=== PATIENT | female | born 1980 | race African-American/Black ===

== ENCOUNTER → 2016-09-10 | Outpatient (CLI) | payer OTHER ==
[~2016-09-10] MED LIST: ALLER-TEC10 M1 PO; AMITRIPTYLINE H50 MG PO; AMOXICILLIN875 MG PO; ANTIVERT PO; BACLOFEN10 MG PO; CIPRO PO; CLARITIN10 MG PO; FLONASE ALLERG9.9 ML; INDOCIN SR75 MG PO; INDOMETHACIN50 MG PO; KETOPROFEN PO; LISINOPRIL-HCTZ1 T21 PO; LORTAB 7.51 TAB 7.5/ PO; LYRICA PO; MEDROL DOSEPAK4 MG DOB; METROGEL-VAGINA70 GM VG; MOBIC PO; NASONEX17 GM; NEURONTIN300 MG PO; PHENERGAN25 M1 PO; PREDNISONE10 MG PO; SEROQUEL50 M1 PO; TECFIDERA240 MG PO; VENLAFAXINE H37.5 M1 PO; VIBRAMYCIN100 M1 DOB; VITAMIN D50000 UNIT PO; ZITHROMAX1 G/PKT PO; ZOFRAN ODT4 MG PO
--- NOTE | ~2016-09-10 | MR175 ---
[facility] A Service of [facility] RADIOLOGY TEXT RESULTS PATIENT: GEOVANNA MOTLEY LOCATION: [facility] : 76 UNIT #: [id number] AGE: [address]: MARGARETH CARVER APRN SEX: F ORDER DR: [id number] [facility] [address] [place], [place] [address] [id number] O MR#: [id number] Acc #: [id number] NAME: GEOVANNA MOTLEY : 1980 SEX: F STUDY DATE/TIME: 09/10/2016 14:37 UNIT: [facility] ROOM: STUDY DESCRIPTION: MR Thoracic WWo Contrast Attending Physician: Margareth Carver Aprn Ordering Physician: Margareth Carver Aprn Primary Care Physician: Ubaldo Fernandez M.D. MRI CENTER REPORT This report is preliminary unless electronic signature is present. EXAM Thoracic MRI with and without HISTORY Follow up multiple sclerosis diagnosed in 2012. No new symptoms. COMMENT MRI of the thoracic spine was performed prior to and following intravenous administration 20 mL MultiHance. COMPARISON 03/21/2016 FINDINGS Mild dextroconvex scoliosis. This was unchanged from previous. Sagittal alignment is normal. Bone marrow signal intensity is essentially normal. Intervertebral discs are well-hydrated for age group. Thoracic cord is normal in size and signal intensity. A tiny rightward protrusion at T3-4. No foraminal impingement is suspected. No thoracic canal stenosis. Nothing to suggest demyelinating disease in the thoracic cord. There is no pathologic cord enhancement. IMPRESSION Nothing to suggest demyelinating disease in the thoracic spine. Thoracic cord is normal in size and signal intensity and there is no pathologic cord enhancement. No thoracic canal stenosis. No change in the mild scoliosis. Add: see separate lumbar spine dictation. There is a small focus of likely chronic demyelinating plque at T11-12 better seen on that exam. Dictated by... Una Guerrero M.D. [facility] A Service of [facility] RADIOLOGY TEXT RESULTS PATIENT: GEOVANNA MOTLEY LOCATION: [facility] : 78 UNIT #: [id number] AGE: [address]: MARGARETH CARVER APRN SEX: F ORDER DR: THIS IS AN ELECTRONICALLY VERIFIED REPORT nUa Guerrero M.D. at 09/11/2016 10:53 PM SAC/to TD: 09/11/2016 19:42 JOB #: [id number] MRI CENTER REPORT Page 1 of 1 COPY
--- NOTE | ~2016-09-10 | MR31 ---
[facility] A Service of [facility] RADIOLOGY TEXT RESULTS PATIENT: GEOVANNA MOTLEY LOCATION: [facility] : 78 UNIT #: [id number] AGE: [address]: MARGARETH CARVER APRN SEX: F ORDER DR: [id number] [facility] [address] [place], [place] [address] [id number] O MR#: [id number] Acc #: [id number] NAME: GEOVANNA MOTLEY : 1980 SEX: F STUDY DATE/TIME: 09/10/2016 14:19 UNIT: [facility] ROOM: STUDY DESCRIPTION: MR Cervical WWo Contrast Attending Physician: Margareth Carver Aprn Ordering Physician: Margareth Carver Aprn Primary Care Physician: Ubaldo Fernandez M.D. MRI CENTER REPORT This report is preliminary unless electronic signature is present. EXAM Cervical spine MRI without and with HISTORY Multiple sclerosis for followup. No new symptoms diagnosed in 2013 COMMENT MRI of the cervical spine performed prior to and following intravenous administration of 20 mL of MultiHance. Comparison study is from 03/21/2016. There is mild reversal of the cervical lordosis. This could be positional. Bone marrow signal intensity is normal. There is no Chiari-I malformation. There is again mild cord volume loss centered at the level of C4-C5 posteriorly in an area of cord signal abnormality. This is most consistent with an area of chronic demyelinating plaque. Area of interest measures about 1.2 cm in length, 0.4 cm in AP dimension, and 0.4 cm ML dimension. It is not appreciably changed on comparison to prior study. Following contrast administration, there is no pathologic enhancement. There is nothing to suggest active demyelination. Also again seen is a tiny focus of signal abnormality in the posterior midline cord at the level of CT 3, unchanged and probably a smaller area of chronic demyelination. There is no new lesion appreciated. There is no focal disc protrusion or extrusion. There is a minor disc bulge at C6-C7 with minor endplate spondylosis. There is no cervical canal stenosis. No foraminal impingement. IMPRESSION There is redemonstration of chronic demyelinating plaque in the cervical STS. [facility] A Service of [facility] & [facility] RADIOLOGY TEXT RESULTS PATIENT: GEOVANNA MOTLEY LOCATION: [facility] : 78 UNIT #: [id number] AGE: [address]: MARGARETH CARVER APRN SEX: F ORDER DR: kyra. No new lesion is seen. No active demyelination is suspected. Nothing to suggest cervical canal or foraminal impingement. Continued follow up suggested. Dictated by... Una Guerrero M.D. THIS IS AN ELECTRONICALLY VERIFIED REPORT Una Guerrero M.D. at 09/11/2016 10:51 PM LALA/samantha TD: 09/11/2016 19:20 JOB #: [id number] MRI CENTER REPORT Page 1 of 1 COPY
--- NOTE | ~2016-09-10 | MR112 ---
[facility] A Service of [facility] RADIOLOGY TEXT RESULTS PATIENT: GEOVANNA MOTLEY LOCATION: [facility] : 78 UNIT #: [id number] AGE: [address]: MARGARETH CARVER APRN SEX: F ORDER DR: [id number] [facility] [address] [place], [place] [address] [id number] O MR#: [id number] Acc #: [id number] NAME: GEOVANNA MOTLEY : 1980 SEX: F STUDY DATE/TIME: 09/10/2016 14:59 UNIT: [facility] ROOM: STUDY DESCRIPTION: MR Lumbar WWo Contrast Attending Physician: Margareth Carver Aprn Ordering Physician: Margareth Carver Aprn Primary Care Physician: Ubaldo Fernandez M.D. MRI CENTER REPORT This report is preliminary unless electronic signature is present. EXAM MR lumbar spine with and without HISTORY Multiple sclerosis follow up, diagnosed in 2012 and no new complaints. COMMENT MRI of the lumbar spine performed prior to and following intravenous administration of 20 mL of MultiHance. COMPARISON There is plain film comparison of the lumbar spine from 2017, but I do not have a MRI comparison. FINDINGS There is mild levoconvex lower lumbar scoliosis. Sagittal alignment is normal. Bone marrow signal intensity is normal. Conus medullaris terminates at L1. There is a possible small focus of signal abnormality within the lower thoracic cord at the level of T11-T12 better seen on the lumbar spine study than the thoracic spine study. It is about 8 mm in length, 5 mm in AP dimension and 5 mm in ML dimension. It is not associated with enhancement, mass effect of volume loss. I suspect it is a small chronic demyelinating plaque. It might have been present on the study from 03/21/2016, in retrospect. Mild disc desiccation and loss of disc height at the L4-L5 level. T12-L1, no significant abnormality. L1-L2, no significant abnormality. [facility] A Service of [facility] RADIOLOGY TEXT RESULTS PATIENT: GEOVANNA MOTLEY LOCATION: [facility] : 78 UNIT #: [id number] AGE: [address]: MARGARETH CARVER APRN SEX: F ORDER DR: L2-L3, no significant abnormality. At L3-L4, mild facet hypertrophy on the right. No canal or foraminal impingement. L4-L5, mild bilateral facet hypertrophy. There is a central disc protrusion/extrusion extending cephalad from the disc level, but remaining contiguous with it. It results in some mass effect on the left anterior thecal sac and mild mass effect on the left lateral recess. The disc material is about 1.2 SI dimension, 0.6 cm AP dimension and 1 cm ML dimension. There is no foraminal compromise. At L5-S1, there is mild facet degenerative change on the left. There is no canal stenosis or significant foraminal impingement. Following contrast administration, there is no pathologic nerve root enhancement. Some arthritis likely at the sacroiliac joints. This is partly seen. IMPRESSION 1. There is probably a small chronic demyelinating plaque at the anterior aspect of the cord at the level of T11-12. It is better seen on this lumbar spine study than the earlier thoracic spine study. It is probably chronic in retrospect on a view of a thoracic MRI from 2016. 2. No new abnormality or area of active demyelination is appreciated. 3. There are lumbar degenerative changes most significant appearing radiographically at the L4-L5 level where there is a leftward small extrusion, but it does not result in significant canal stenosis. There is only mild mass effect on the left lateral recess. STAT * RESULT Dictated by... Una Guerrero M.D. THIS IS AN ELECTRONICALLY VERIFIED REPORT Una Guerrero M.D. at 09/11/2016 10:49 PM SAC/to TD: 09/11/2016 17:43 JOB #: [id number] MRI CENTER REPORT Page 1 of 1 COPY
--- NOTE | ~2016-09-10 | MR17 ---
[facility] A Service of [facility] RADIOLOGY TEXT RESULTS PATIENT: GEOVANNA MOTLEY LOCATION: [facility] : 78 UNIT #: [id number] AGE: [address]: MARGARETH CARVER APRN SEX: F ORDER DR: [id number] [facility] [address] [place], [place] [address] [id number] O MR#: [id number] Acc #: [id number] NAME: GEOVANNA MOTLEY : 1980 SEX: F STUDY DATE/TIME: 09/10/2016 14:02 UNIT: [facility] ROOM: STUDY DESCRIPTION: MR Brain WWo Contrast Attending Physician: Margareth Carver Aprn Ordering Physician: Margareth Carver Aprn Primary Care Physician: Ubaldo Fernandez M.D. MRI CENTER REPORT This report is preliminary unless electronic signature is present. EXAM MRI of the brain with and without 09/10/2016 HISTORY Multiple sclerosis for followup. No new symptoms. Diagnosed in 2012. No cancer history. No trauma history. COMMENTS MRI of the brain was performed prior to and following intravenous administration of 20 mL of MultiHance. COMPARISON STUDIES 03/21/2016 FINDINGS Redemonstrated are multiple foci of signal abnormality in the deep periventricular white matter predominantly with appearance typical of the patient's clinical diagnosis of multiple sclerosis. Supratentorial involvement predominates. On comparison to previous, no new lesions are seen. There is mild atrophy for age group. Following contrast administration, there is no pathologic intracranial enhancement. There is some T2 shine through but no truly restricted diffusion. There is no mass effect. There is no imaging evidence for active demyelination. There are areas of T1 precontrast low signal intensity consistent with black holes. The largest of these left posterior periventricular white matter about 7 mm dimension and not appreciably changed. There is no MRI evidence for intracranial hemorrhage. There is no intracranial mass lesion. There is an old right medial orbital wall fracture. Minor fluid or inflammatory change right and left side mastoid air cells. Paranasal sinuses are clear. No sinus air-fluid level. The major intracranial flow voids are maintained. [facility] A Service of [facility] & [facility] RADIOLOGY TEXT RESULTS PATIENT: GEOVANNA MOTLEY [facility] UNIT #: [id number] AGE: [address]: MARGARETH CARVER APRN SEX: F ORDER DR: IMPRESSION Redemonstration of findings consistent with provided clinical diagnosis of multiple sclerosis. No new lesions. No imaging evidence for active demyelination. Dictated by... Una Guerrero M.D. THIS IS AN ELECTRONICALLY VERIFIED REPORT Una Guerrero M.D. at 09/11/2016 10:51 PM Justin TD: 09/11/2016 18:27 JOB #: [id number] MRI CENTER REPORT Page 1 of 1 COPY
== END | disposition home or self-care (01) ==
LOC: CMRI 13:05
DX: G35 Multiple sclerosis (principal); M51.36 Other intervertebral disc degeneration, lumbar region; G95.89 Other specified diseases of spinal cord
CPT/HCPCS: 70553; 72156; 72157; 72158; A9577

== ENCOUNTER 2016-10-07 11:10 | Emergency (ER) | payer OTHER ==
--- NOTE | ~2016-10-07 | CR150 ---
[facility] A Service of [facility] RADIOLOGY TEXT RESULTS PATIENT: GEOVANNA MOTLEY LOCATION: [facility] : 78 UNIT #: [id number] AGE: [address]: TRUNG ADLER SEX: F ORDER DR: [id number] [facility] [address] [place], [place] [address] [id number] P MR#: [id number] Acc #: [id number] NAME: GEOVANNA MOTLEY : 1980 SEX: F STUDY DATE/TIME: 10/07/2016 UNIT: [facility] ROOM: STUDY DESCRIPTION: CR Hip Min 2 Views Lt Attending Physician: Trung Adler Aprn Ordering Physician: Trung Adler Aprn Primary Care Physician: Ubaldo Fernandez M.D. MEDICAL IMAGING REPORT This report is preliminary unless electronic signature is present EXAM Left hip 10/07/2016 12:27 hours HISTORY 36-year-old woman who has fallen twice in the last 10 days with complaint of left hip pain and medial right knee pain. History of multiple sclerosis. COMPARISON Lumbar spine series 07/23/2016. FINDINGS AP pelvis and frog lateral view left hip demonstrate no acute fracture. There is subarticular lucency with surrounding sclerosis at the femoral heads bilaterally concerning for avascular necrosis. The acetabular sides of the joint are normal. Consider pelvis/hip MRI to exclude avascular necrosis. IMPRESSION 1. No pelvic or hip fracture seen. 2 At both femoral heads there is subarticular lucency with surrounding sclerosis raising concern for avascular necrosis. Correlate clinically. Follow up pelvis/hip MRI is recommended to assess both hips for avascular necrosis. Dictated by... Nubia Ontiveros M.D. THIS IS AN ELECTRONICALLY VERIFIED REPORT Nubia Ontiveros M.D. at 10/07/2016 2:29 PM SMM/marina TD: 10/07/2016 13:11 [facility] A Service of [facility] RADIOLOGY TEXT RESULTS PATIENT: GEOVANNA MOTLEY LOCATION: [facility] : 78 UNIT #: [id number] AGE: [address]: TRUNG ADLER SEX: F ORDER DR: JOB #: [id number] MEDICAL IMAGING REPORT Page 1 of 1 COPY
--- NOTE | ~2016-10-07 | CR173 ---
[facility] A Service of [facility] RADIOLOGY TEXT RESULTS PATIENT: GEOVANNA MOTLEY LOCATION: [place] : 78 UNIT #: [id number] AGE: [address]: TRUNG ADLER SEX: F ORDER DR: [id number] [facility] [address] [place], [place] [address] [id number] E MR#: [id number] Acc #: [id number] NAME: GEOVANNA MOTLEY : 1980 SEX: F STUDY DATE/TIME: 10/07/2016 12:28 UNIT: [facility] ROOM: STUDY DESCRIPTION: CR Knee 3 Views Rt Attending Physician: Trung Adler Aprn Ordering Physician: Trung Adler Aprn Primary Care Physician: Ubaldo Fernandez M.D. MEDICAL IMAGING REPORT This report is preliminary unless electronic signature is present EXAM Right knee, 10/07/2016, 1228 hours. CLINICAL HISTORY Patient has fallen twice in the last 10 days. Right medial knee pain since falls. History of multiple sclerosis. COMPARISON None FINDINGS AP, lateral view, and sunrise view are performed. There is no joint effusion or a fracture. There is a mottled appearance to the marrow in the proximal tibial metaphysis measuring up to 5.6 x 2.6 cm which is nonspecific. I would favor this represents an area of previous bone infarct. Correlate with any historical images if these exist. IMPRESSION 1. No joint effusion, fracture, joint space loss, or spurring. There is no loose body. 2. There is a mottled area of relative increased density with mixed lucencies poorly defined in the proximal tibial metaphysis, best seen on the lateral view but present on the AP view. This measures 5.6 x 2.6 cm and is nonspecific. Given the location in this appearance, I would favor a possible bone infarct in the tibia. No prior imaging is available. Correlate with clinical symptoms and duration. Dictated by... Nubia Ontiveros M.D. THIS IS AN ELECTRONICALLY VERIFIED REPORT [facility] A Service of [facility] RADIOLOGY TEXT RESULTS PATIENT: GEOVANNA MOTLEY LOCATION: [facility] : 78 UNIT #: [id number] AGE: [address]: TRUNG ADLER SEX: F ORDER DR: Nubia Ontiveros M.D. at 10/07/2016 2:30 PM TREASURE/elaine TD: 10/07/2016 14:22 JOB #: [id number] MEDICAL IMAGING REPORT Page 1 of 1 COPY
== END 2016-10-07 15:36 | disposition home or self-care (01) ==
LOC: CFTX 11:10 → CED 11:10 → CFTX 13:13
DX: S86.912A Strain of unspecified muscle(s) and tendon(s) at lower leg level, left leg, initial encounter (principal); W01.0XXA Fall on same level from slipping, tripping and stumbling without subsequent striking against object, initial encounter; Y92.009 Unspecified place in unspecified non-institutional (private) residence as the place of occurrence of the external cause
CPT/HCPCS: 73502; 73562; 96372; 99284; J1885

== ENCOUNTER 2016-12-28 14:13 | Emergency (ER) | payer OTHER ==
--- NOTE | ~2016-12-28 | CR127 ---
[facility] A Service of [facility] & [facility] RADIOLOGY TEXT RESULTS PATIENT: GEOVANNA MOTLEY LOCATION: [facility] : 78 UNIT #: [id number] AGE: [address]: Margareth Davis APRN SEX: F ORDER DR: [id number] [facility] [address] [place], [place] [address] [id number] E MR#: [id number] Acc #: [id number] NAME: GEOVANNA MOTLEY : 1980 SEX: F STUDY DATE/TIME: 12/28/2016 15:12 UNIT: [facility] ROOM: STUDY DESCRIPTION: CR Foot Complete Min 3 View Rt Attending Physician: Margareth Davis A.P.R.N. Ordering Physician: [facility] Primary Care Physician: Ubaldo Fernandez M.D. MEDICAL IMAGING REPORT This report is preliminary unless electronic signature is present EXAM Right foot INDICATIONS Trauma. Tripped and has foot pain. FINDINGS 3 views of the right foot without comparison. FINDINGS There is no acute fracture or dislocation. No foreign body. IMPRESSION Negative right foot. Dictated by... Shawn Dueñas M.D. THIS IS AN ELECTRONICALLY VERIFIED REPORT Shawn Dueñas M.D. at 12/29/2016 5:16 PM RPC/pcl TD: 12/29/2016 16:55 JOB #: [id number] MEDICAL IMAGING REPORT Page 1 of 1 COPY
--- NOTE | ~2016-12-28 | CR21 ---
[facility] A Service of [facility] RADIOLOGY TEXT RESULTS PATIENT: GEOVANNA MOTLEY LOCATION: [facility] : 76 UNIT #: [id number] AGE: [address]: Margareth Davis APRN SEX: F ORDER DR: [id number] [facility] [address] [place], [place] [address] [id number] E MR#: [id number] Acc #: [id number] NAME: GEOVANNA MOTLEY : 1980 SEX: F STUDY DATE/TIME: 12/28/2016 15:11 UNIT: [facility] ROOM: STUDY DESCRIPTION: CR Ankle Min 3 Views Rt Attending Physician: Margareth Davis A.P.R.N. Ordering Physician: Ed Bert Diaz M.D. Primary Care Physician: Ubaldo Fernandez M.D. MEDICAL IMAGING REPORT This report is preliminary unless electronic signature is present EXAM Right ankle. INDICATION Right ankle pain. Trauma. FINDINGS Three views of the right ankle without comparison. There is no acute fracture or dislocation. Alignment is anatomic. No foreign body. IMPRESSION Negative right ankle. Dictated by... Shawn Dueñas M.D. THIS IS AN ELECTRONICALLY VERIFIED REPORT Shawn Dueñas M.D. at 12/29/2016 5:16 PM ROSIE/elaine TD: 12/29/2016 16:57 JOB #: [id number] MEDICAL IMAGING REPORT Page 1 of 1 COPY
== END 2016-12-28 16:09 | disposition home or self-care (01) ==
LOC: CFTX 14:13 → CED 14:13 → CFTX 15:55
DX: S93.621A Sprain of tarsometatarsal ligament of right foot, initial encounter (principal); S93.402A Sprain of unspecified ligament of left ankle, initial encounter; F17.210 Nicotine dependence, cigarettes, uncomplicated; W19.XXXA Unspecified fall, initial encounter; Y92.009 Unspecified place in unspecified non-institutional (private) residence as the place of occurrence of the external cause
CPT/HCPCS: 29405; 73610; 73630; 99283